=== PATIENT | female | born 1970 | race Caucasian/White ===

== ENCOUNTER 2021-03-31 12:54 | Emergency (ER) | payer BC ==
[2021-03-31] MEDS ORDERED: Sodium Chloride 0.9% 10 ML Syringe FLUSH PRN ×2 (13:20→13:29)
--- NOTE | 2021-03-31 13:28 | EDM.PDOC ---
ED HPI GENERAL MEDICAL PROBLEM - General Chief Complaint: ENT Problem Stated Complaint: ABSCESS ON TONSIL SENT BY [facility] Time Seen by Provider: 03/31/21 13:11 Source of Information: Reports: Patient, Provider (Yvette Mario PA-C from [facility] clinic), RN Notes Reviewed History Limitations: Reports: No Limitations - History of Present Illness INITIAL COMMENTS - FREE TEXT/NARRATIVE: Patient is a 50-year-old female who presents to the ER for a possible peritonsillar abscess. Patient was seen at the [facility] clinic for a right ear complaint. She had some lab work done, and evaluation, and the provider in the [place] felt that she could have a peritonsillar abscess versus enlarged lymph node. She got sent to the ER for further evaluation. Patient noticed that she woke up with these issues yesterday morning, and then went to the clinic today for management. She states her throat feels dry however she is able to eat and drink without much difficulty. She is not had any fevers or chills, cough or shortness of breath, or any sort of nausea/vomiting/diarrhea. Patient does have a history of thyroid issues, and is on Synthroid for this. She is also a smoker of 20 years, and smokes roughly 3/4 pack a day. Primary care provider would be Brooke Mario from the [place] clinic. - Related Data Allergies Allergy/AdvReac Type Severity Reaction Status Date / Time No Known Allergies Allergy Verified 03/31/21 13:05 Home Meds: Home Meds Clindamycin HCl 300 mg PO TID 8 Days #24 capsule 03/31/21 [Rx] Past Medical History Endocrine/Metabolic History: Reports: Hypothyroidism - Past Surgical History Female Surgical History: Reports: Section, Tubal Ligation Social & Family History - Tobacco Use Tobacco Use Status *Q: Current Every Day Tobacco User Years of Tobacco use: 30 Packs/Tins Daily: 0.7 - Recreational Drug Use Recreational Drug Use: No ED ROS ENT - Review of Systems Review Of Systems: Comprehensive ROS is negative, except as noted in HPI. ED EXAM, ENT - Physical Exam Exam: See Below Exam Limited By: No Limitations General Appearance: Alert, WD/WN, No Apparent Distress Mouth/Throat: Normal Inspection, Normal Gums, Normal Lips, Peritonsillar Mass (questionable; appears to be behind tonsillar tissue), Tonsillar Exudates (Right sided; looks to be behind tonisllar tissue), Tonsillar Swelling (right sided). No: Trismus, Uvular Deviation Neck: Normal Inspection, Supple, Tender Lateral (under right mandible and into right anterior neck) Respiratory/Chest: No Respiratory Distress, Lungs Clear, Normal Breath Sounds, No Accessory Muscle Use, Chest Non-Tender Cardiovascular: Normal Peripheral Pulses, Regular Rate, Rhythm, No Edema Neurological: Alert Psychiatric: Normal Affect, Normal Mood Skin: Warm, Dry, Intact, Normal Color, No Rash Course - Vital Signs Last Recorded V/S: Last Vital Signs Temp 97.9 F 03/31/21 13:05 Pulse 90 03/31/21 13:05 Resp 18 03/31/21 13:05 BP 115/85 03/31/21 13:05 Pulse Ox 94 L 03/31/21 13:05 - Orders/Labs/Meds Orders: Active Orders 24 hr Category Date Time Status Peripheral IV Care [RC] . DIRECTED Care 03/31/21 13:21 Ordered Sodium Chloride 0.9% [Saline Flush] Med 03/31/21 13:20 Ordered 10 ml FLUSH ASDIRECTED PRN Sodium Chloride 0.9% [Saline Flush] Med 03/31/21 13:29 Active 10 ml FLUSH ONETIME PRN Peripheral IV Insertion Adult [OM.PC] Routine Oth 03/31/21 13:20 Ordered Medication Orders Sodium Chloride (Sodium Chloride 0.9% 10 Ml Syringe) 10 ml FLUSH ASDIRECTED PRN PRN Reason: Keep Vein Open Last Admin: 03/31/21 15:27 Dose: 10 ml Documented by: Sodium Chloride (Sodium Chloride 0.9% 10 Ml Syringe) 10 ml FLUSH ONETIME PRN PRN Reason: IV FLUSH Last Admin: 03/31/21 14:28 Dose: 10 ml Documented by: FRANK Labs: Laboratory Tests 03/31/21 Range/Units 10:30 Sodium 137 (136-145) mEq/L Potassium 4.1 (3.5-5.1) mEq/L Chloride 102 (98-107) mEq/L Carbon Dioxide 27 (21-32) mEq/L Anion Gap 12.1 (5-15) BUN 10 (7-18) mg/dL Creatinine 0.8 (0.55-1.02) mg/dL Est Cr Clr Drug Dosing 69.28 mL/min Estimated GFR (MDRD) > 60 (>60) mL/min BUN/Creatinine Ratio 12.5 L (14-18) Glucose 96 (74-106) mg/dL Calcium 9.7 (8.5-10.1) mg/dL Total Bilirubin 0.5 (0.2-1.0) mg/dL AST 12 L (15-37) U/L ALT 18 (14-59) U/L Alkaline Phosphatase 89 (46-116) U/L C-Reactive Protein 3.0 H* (<1.0) mg/dL Total Protein 7.5 (6.4-8.2) g/dl Albumin 3.9 (3.4-5.0) g/dl Globulin 3.6 gm/dL Albumin/Globulin Ratio 1.1 (1-2) Meds: Medications Generic Name Dose Route Start Last Admin Trade Name Fremitra PRN Reason Stop Dose Admin Sodium Chloride 10 ml 03/31/21 13:20 03/31/21 15:27 Sodium Chloride 0.9% 10 Ml Syringe FLUSH 10 ml ASDIRECTED PRN Administration Keep Vein Open Sodium Chloride 10 ml 03/31/21 13:29 03/31/21 14:28 Sodium Chloride 0.9% 10 Ml Syringe FLUSH 10 ml ONETIME PRN Administration IV FLUSH Discontinued Medications Generic Name Dose Route Start Last Admin Trade Name Freq PRN Reason Stop Dose Admin Clindamycin Phosphate 900 mg/ 50 mls @ 100 mls/hr 03/31/21 15:00 03/31/21 15:25 Premix IV 03/31/21 15:29 100 mls/hr ONETIME ONE Administration Iopamidol 100 ml 03/31/21 13:29 03/31/21 14:28 Iopamidol 612 Mg/Ml 100 Ml Bottle IVPUSH 03/31/21 13:30 100 ml ONETIME ONE Administration - Re-Assessments/Exams Free Text/Narrative Re-Assessment/Exam: 03/31/21 13:29 Patient presents to the ER for the evaluation of a possible peritonsillar abscess, she did come with laboratory evaluation to include a CBC, and a negative strep screen. She was also sent with other tube to the blood that the clinic had taken previously. Patient's white count was elevated at 15.4 with 74% neutrophils. We will go ahead get IV established, give the soft tissue neck CT with IV contrast, and likely give her a dose of antibiotics intravenously, and hopefully get her sent home with oral antibiotics; as she is not having much for swallowing difficulty, pain, etc. 03/31/21 15:00 CT has been performed, there is some mild edema around the parapharyngeal tissues, which would be compatible with a mild infection but no abscess was identified at today's visit. There are some enlarged lymph nodes as well, compatible with infectious process. Metabolic panel essentially unremarkable and the patient CRP is 3.0. We will go ahead and give her a dose of IV clindamycin plan to send her home with oral clindamycin and have her follow-up in clinic next week if not much better. 03/31/21 15:54 Patient's antibiotic has been instilled, patient has had no adverse reaction, we will go ahead and discharge her home with general management. Departure - Departure Time of Disposition: 15:54 Disposition: Home, Self-Care 01 Condition: Good Clinical Impression: Pharyngeal abscess - Discharge Information *PRESCRIPTION DRUG MONITORING PROGRAM REVIEWED*: No *COPY OF PRESCRIPTION DRUG MONITORING REPORT IN PATIENT JUAN M: No Prescriptions: Clindamycin HCl 300 mg PO TID 8 Days #24 capsule Instructions: Retropharyngeal Abscess Referrals: Brooke Terry PA [Primary Care Provider] - Forms: ED Department Discharge Additional Instructions: You were seen in this ER for your throat infection. A CT was performed, and demonstrates no obvious abscess but there was an infection in your pharyngeal space. You were given a dose of IV clindamycin to begin management of this, will be started on oral antibiotics for this. This medication was electronically sent to the [facility] located on [address]. Highly recommend you follow-up with Brooke Mario at the [facility], to make sure that your symptoms are getting better as expected. This should be sometime early to mid next week. You may use Tylenol ibuprofen every 6 hours as needed for further pain or discomfort. Please return to the ER at any time if symptoms change or worsen. Sepsis Event Note (ED) - Evaluation Sepsis Screening Result: No Definite Risk - Focused Exam Vital Signs: Vital Signs Temp Pulse Resp BP Pulse Ox 03/31/21 13:05 97.9 F 90 18 115/85 94 L - My Orders Last 24 Hours: My Active Orders 03/31/21 13:20 Sodium Chloride 0.9% [Saline Flush] 10 ml FLUSH ASDIRECTED PRN Peripheral IV Insertion Adult [OM.PC] Routine 03/31/21 13:21 Peripheral IV Care [RC] . DIRECTED 03/31/21 13:29 Sodium Chloride 0.9% [Saline Flush] 10 ml FLUSH ONETIME PRN - Assessment/Plan Last 24 Hours: My Active Orders 03/31/21 13:20 Sodium Chloride 0.9% [Saline Flush] 10 ml FLUSH ASDIRECTED PRN Peripheral IV Insertion Adult [OM.PC] Routine 03/31/21 13:21 Peripheral IV Care [RC] . DIRECTED 03/31/21 13:29 Sodium Chloride 0.9% [Saline Flush] 10 ml FLUSH ONETIME PRN
[2021-03-31] MEDS ORDERED: Iopamidol 612 MG/ML 100 ML Bottle IVPUSH ONE (13:29)
--- NOTE | 2021-03-31 14:56 | CT ---
CT neck Technique: Multiple axial sections through the neck were obtained. Intravenous contrast was utilized. Reconstructed coronal and sagittal images were obtained. Findings: Very slight edema is noted within the right parapharyngeal soft tissues compatible with mild infection. There are no focal fluid collections being seen to indicate an abscess. No mass-effect is appreciated. Epiglottis is normal. Prevertebral soft tissues are normal. Visualized paranasal sinuses and mastoid sinuses show nothing acute. Parotid salivary gland and submandibular salivary glands are within normal limits. Several enlarged lymph nodes are seen within the right and left sides of the neck measuring up to 1.9 cm. Bone window settings were reviewed which show mild degenerative changes scattered within the cervical spine. No acute osseous abnormality is appreciated. Impression: 1. Edema within the right parapharyngeal soft tissues compatible with mild infection. 2. No findings of abscess are seen. 3. Slightly enlarged lymph nodes within both sides of the neck presumably inflammatory if patient has infectious symptoms. Diagnostic code #3
[2021-03-31] MEDS ORDERED: Clindamycin Phosphate in D5W 900 MG in Premix Bag 1 BAG IV ONE ×2 (15:00)
== END 2021-03-31 16:22 | disposition home or self-care (01) ==
LOC: JD.ED 12:54
DX: J39.1 Other abscess of pharynx (principal); Z72.0 Tobacco use
CPT/HCPCS: 36415; 70491; 80053; 86140; 96365; 99283; J3490; Q9967; 99284

== ENCOUNTER 2023-02-10 11:51 | Emergency (ER) | payer SELFPAY ==
[2023-02-10] MEDS ORDERED: Diphtheria,Pertussis(Acell),Tetanus Vaccine 0.5 ML Syringe IM ONE (13:09)
[2023-02-10] MEDS ORDERED: Lidocaine 1% 10 ML MDV INJECT ONE (13:09)
[2023-02-10] MEDS ORDERED: Bupivacaine 0.5% 10 ML SDV INJECT ONE (13:09)
[2023-02-10] MEDS ORDERED: cefTRIAXone 1 GM, Lidocaine 1% 2.1 ML IM ONE ×2 (13:10)
== END 2023-02-10 14:40 | disposition home or self-care (01) ==
LOC: JD.ED 11:51
DX: S92.424B Nondisplaced fracture of distal phalanx of right great toe, initial encounter for open fracture (principal); E03.9 Hypothyroidism, unspecified; Z23 Encounter for immunization; Z79.899 Other long term (current) drug therapy; Z72.0 Tobacco use; W20.8XXA Other cause of strike by thrown, projected or falling object, initial encounter
CPT/HCPCS: 12001; 73660; 90471; 90715; 96372; 99283; J0696; J3490; 99284